=== PATIENT | female | born 1940 | race Caucasian/White ===

== ENCOUNTER 2017-01-27 07:02 | Day surgery (SDC) | payer MEDICARE, BC ==
[2017-01-27] MEDS ORDERED: Sodium Chloride 0.9% 10 ML Syringe FLUSH PRN (07:45)
[2017-01-27] MEDS ORDERED: Lactated Ringers 1,000 ML IV SCH (07:45)
[2017-01-27] MEDS ORDERED: Midazolam 1 MG/ML 2 ML SDV IV ONE (09:15)
[2017-01-27] MEDS ORDERED: Propofol 200 MG/20 ML SDV IV ONE (09:15)
--- NOTE | 2017-01-27 09:56 | PCM.OPNOTE ---
- General Post-Op/Procedure Note Date of Surgery/Procedure: 01/27/17 Operative Procedure(s): c scope Findings: redundant colon sigmoid diverticulosis Pre Op Diagnosis: lower abd pain. rectal pain Post-Op Diagnosis: redundant colon. sigmoid diverticulosis Anesthesia Technique: SIGIFREDO Primary Surgeon: Nathan Ramos Anesthesia Provider: Rose Segura Pathology: none Complications: None Condition: Good Free Text/Narrative:: see dictation
--- NOTE | 2017-01-27 11:37 | OR ---
DATE OF OPERATION: 01/27/2017 SURGEON: Nathan Ramos MD PROCEDURE PERFORMED: Colonoscopy. PREOPERATIVE DIAGNOSIS: Change in bowel habits, pressure sensation in the rectum. POSTOPERATIVE DIAGNOSIS: Redundant colon, poor prep. INDICATIONS FOR PROCEDURE: This is a 76-year-old white female, whose last colonoscopy was approximately 10 years ago. She was referred with some vague abdominal complaints of lower abdominal pain, feeling a pressure sensation, especially with defecation. She was offered and accepted colonoscopy. DESCRIPTION OF OPERATION: After an excellent IV sedation was administered via anesthesia, digital rectal exam was performed on the patient. No marked abnormality was noted. Flexible colonoscope was inserted and advanced with some difficulty to the sigmoid flexure. Attempts to advance the scope beyond this point were not successful despite repositioning the patient, withdrawing the scope, changing the tension on the scope, and applying abdominal wall pressure. The scope was slowly withdrawn. The following findings were noted. Descending colon was essentially unremarkable. The sigmoid demonstrates [id number] diverticular disease with feces still present. Rectum, feces present. No marked abnormality was noted. The patient was taken to recovery. We will be obtaining an air contrast barium enema to clear the remainder of the colon. /[id number] /MODL
== END 2017-01-27 11:08 | disposition home or self-care (01) ==
LOC: FB.SDS 07:02
PROVIDERS: ATTEND Surgery
DX: K57.30 Diverticulosis of large intestine without perforation or abscess without bleeding (principal); I10 Essential (primary) hypertension; E11.9 Type 2 diabetes mellitus without complications; Z79.4 Long term (current) use of insulin; Z79.899 Other long term (current) drug therapy; Z88.8 Allergy status to other drugs, medicaments and biological substances; E78.5 Hyperlipidemia, unspecified; Z98.890 Other specified postprocedural states; Z96.653 Presence of artificial knee joint, bilateral
CPT/HCPCS: 00810; 45378; 82962; J2250; J2704; J7120

== ENCOUNTER 2021-12-06 10:23 | Emergency (ER) | payer MEDICARE, BC ==
[2021-12-06] MEDS: Acetaminophen/HYDROcodone 325-5 MG Tab PO ONE (11:03)
== END 2021-12-06 11:30 | disposition home or self-care (01) ==
LOC: FB.ED 10:23
DX: M67.912 Unspecified disorder of synovium and tendon, left shoulder (principal); E11.42 Type 2 diabetes mellitus with diabetic polyneuropathy; E78.00 Pure hypercholesterolemia, unspecified; I10 Essential (primary) hypertension; Z79.4 Long term (current) use of insulin; Z79.82 Long term (current) use of aspirin
CPT/HCPCS: 99283; A9270-GY